=== PATIENT | male | born 1965 | race Caucasian/White ===

== ENCOUNTER → 2024-03-16 07:50 | Outpatient (REF) | payer BC, SELFPAY | LOC: RCS 07:50 | PROVIDERS: ATTENDING PHYSICIAN Internal Medicine Cardiovascular Disease | DX: R07.9 Chest pain, unspecified (principal); R00.2 Palpitations | CPT/HCPCS: 93017; 93306 ==

== ENCOUNTER 2024-11-04 11:00 | Emergency (ER) | payer BC, SELFPAY ==
[2024-11-04 11:08] VITALS: BP 123/70
--- NOTE | 2024-11-04 12:10 | ED.GENMED ---
History of Present Illness
General
Chief Complaint: Skin Problem
Source: patient
Time Seen by Provider: 11/04/24 11:50
History of Present Illness
History of Present Illness:
59-year-old male with no significant past medical history presents to the emergency department for evaluation after he noticed a small erythematous area, break in his skin to the right lower leg a couple days ago after doing some yard work, has
started to get slightly worse with increased rash to his bilateral upper extremities. Both areas are pruritic and reminiscent of previous rash that he had about 10 years ago requiring him to come to the ER. Patient states he was given an
antibiotic which seemed to make the rash worse, treated with a steroid and Benadryl which seemed to make the rash get better. Patient believes that it is possible he came in contact with poison steve. He denies any fevers or infectious symptoms. No
other concerns. Patient did attempt some calamine lotion and cool compresses with some relief but symptoms returned shortly after
Past History
Past History
ED Past Medical History: None
ED Past Surgical History: Appendectomy
Social History
Tobacco: Non-smoker
Alcohol: Occasional
Drug: None
Personal:
Living: with family
Employment: Employed
Review of Systems
Review of Systems
All Other Systems: ROS reviewed and negative except as documented in HPI and ROS
Phy Exam
Physical Exam
Physical Exam:
GENERAL: Alert , in no apparent distress
EYE: conjunctiva clear
Head: Normocephalic atraumatic
NECK: Supple,
ENT: mmm.
LUNGS: no acute respiratory distress
NEUROLOGICAL: Alert and oriented
SKIN: Warm and dry, linear erythematous papular rash to the bilateral forearms, each papules about the 2 mm in size, no vesicular eruption, no surrounding erythema. Right lower extremity: Along the medial mid calf there is a slightly larger area of
erythema without induration or increased warmth, nontender, small scab centrally, no purulence
MUSCULOSKELETAL: well perfused.
PSYCH: Normal and appropriate interaction.
Scores
Heart Failure Risk
Heart Failure Risk Score: Not Applicable
Heart Score for Chest Pain Patients
STEMI patient?: Not applicable
Withdrawal Assessment of Alcohol
Withdrawal Assessment Completed?: Not applicable
Course
Vital Signs
Initial and Last Documented VS:
Initial Vital Signs
Temp Pulse Resp BP Pulse Ox
97.9 F 69 22 123/70 98
11/04/24 11:08 11/04/24 11:08 11/04/24 11:08 11/04/24 11:08 11/04/24 11:08
Last Documented Vital Signs
Temp Pulse Resp BP Pulse Ox
97.9 F 69 22 123/70 98
11/04/24 11:08 11/04/24 11:08 11/04/24 11:08 11/04/24 11:08 11/04/24 11:08
MDM/Problems Addressed
Differential Diagnosis Includes:
Contact dermatitis, poison steve, lyme, less concern for cellulitis
MDM/Problems Addressed:
59-year-old male presenting to the ER for evaluation of a rash that he developed shortly after doing yard work. Intermittent relief with calamine lotion and cool compresses. Rash appears to be more contact dermatitis over infectious etiology.
Advised [id number] Benadryl and Pepcid as needed for symptomatic relief. Given potential contact with poison steve will order longer-term steroid taper. Patient advised on return precautions as well as what to look for or for any signs of
infection. Stable for discharge home.
*Pulse Oximetry
Patient hypoxic: no
*Critical Care Note
Total Time (30-74mins, 75-104mins- exclusive of procedures): Not Applicable
ED Attending Note
-
Portions of this chart may have been created with voice recognition software.� Occasional wrong word or��sound alike� substitutions may have occurred due to the inherent limitations of voice recognition software.
Discharge Plan
Departure
Patient Disposition: Home (Routine Discharge)
Date of Disposition: 11/04/24
Time of Disposition: 12:10
Patient with high blood pressure during this ER visit?: No
Discharge Problem:
Dermatitis
Instructions: Skin Rash (DC)
Prescriptions:
New
prednisone 10 mg Tablet
See Rx Instructions .ROUTE .COMPLEX Qty: 45 0RF
Rx Instructions:
Take By Mouth:
50 mg daily x3 days, 40 mg daily x3 days,
30 mg daily x3 days, 20 mg daily x3 days,
10 mg daily x3 days
No Action
prednisone 10 MG tablet
10 mg PO .TAPER Qty: 30 0RF
Rx Instructions:
Take 40mg daily x3days, 30mg daily x3days, 20mg daily x3days, 10mg daily x3days.
doxycycline hyclate 100 MG capsule
100 mg PO Q12 Qty: 14 0RF
Referrals:
NONE,* [Family Provider, Internal Medicine]
Interventions
Interventions:
*Risk Screen - Suicide Last Done: 11/04/24 11:08
*General Assessment Last Done: 11/04/24 11:08
*Neglect/Abuse Screening Last Done: 11/04/24 11:08
*Nursing Disposition Last Done: 11/04/24 12:22
ED-Skin Assessment Last Done: 11/04/24 12:22
Discharge Date and Time
Discharge Date/Time: 11/04/24 12:24
Print Language: DIVEHI
== END 2024-11-04 12:24 | disposition home or self-care (01) ==
LOC: EMR 11:00
PROVIDERS: EMERGENCY PHYSICIAN Emergency Medicine
DX: L30.9 Dermatitis, unspecified (principal); Z90.49 Acquired absence of other specified parts of digestive tract
CPT/HCPCS: 99283